=== PATIENT | male | born 1995 | race African-American/Black ===

== ENCOUNTER 2018-07-06 11:28 | Emergency (ER) | payer MEDICAID ==
[~2018-07-06] VITALS: Ht 177.8 cm; Wt 79.0 kg
[2018-07-06 11:33] VITALS: BP 151/60
== END 2018-07-06 15:28 | disposition home or self-care (01) ==
LOC: ER 11:28
DX: T55.0X1A Toxic effect of soaps, accidental (unintentional), initial encounter (principal); T20.40XA Corrosion of unspecified degree of head, face, and neck, unspecified site, initial encounter; Y93.F1 Activity, caregiving, bathing; Y92.9 Unspecified place or not applicable
CPT/HCPCS: 99283